=== PATIENT | male | born 1980 | race Caucasian/White ===

== ENCOUNTER 2021-10-28 21:18 | Emergency (ER) | payer MEDICAID ==
[~2021-10-28] VITALS: Ht 170.2 cm; Wt 111.0 kg
--- NOTE | 2021-10-28 22:48 | NUR ---
Pt UA collected, labeled and sent to lab. Grossly clear/yellow. Pt void ~300 urine. ERP to bedised to evaluate pt.
[2021-10-28 23:15] LABS: CLARITY,URINE CLEAR (Clear); COLOR,URINE YELLOW (Yellow); GLUCOSE, URINE NEGATIVE (Neg); KETONES,URINE NEGATIVE (Neg); LEUKOCYTE ESTERASE ,URINE NEGATIVE (Neg); NITRITES, URINE NEGATIVE (Neg); OCCULT BLOOD,URINE NEGATIVE (Neg); PH,URINE 8.5 (4.8-8.0); PROTEIN,URINE NEGATIVE (Neg); UROBILINOGEN,URINE 0.2 E.U/dL (0.2-1.0)
[2021-10-28] MEDS ORDERED: ibuprofen tablet 400 MG TABLET PO ONE (23:15)
[2021-10-28] MEDS ORDERED: silver sulfadiazine cream 400gm jar TP ONE (23:15)
[2021-10-28] MEDS ORDERED: QUEtiapine 25mg tablet PO ONE (23:15)
[2021-10-28 23:20] LABS: URINE AMPHETAMINE SCREEN NEGATIVE (Neg); URINE BARBITUATE SCREEN NEGATIVE (Neg); URINE BENZODIAZEPINES SCREEN NEGATIVE (Neg); URINE CANNABINOID SCREEN POSITIVE (Neg); URINE COCAINE SCREEN NEGATIVE (Neg); URINE METHADONE SCREEN NEGATIVE (Neg); URINE OPIATE SCREEN NEGATIVE (Neg); URINE PHENCYCLIDINE SCREEN NEGATIVE (Neg)
[2021-10-28 23:21] LABS: UA COLLECTION TYPE CLN CATCH MIDSTREAM
[2021-10-28] MEDS ORDERED: silver sulfadiazine cream 50gm TP ONE (23:35)
--- NOTE | 2021-10-28 23:39 | NUR ---
Pt states he does not "do well" with seroquel PO. Advised ERP of same.
[2021-10-28 23:40] LABS: BASOPHILS # (AUTO) 0.1 X10'3 (0-0.2); BASOPHILS % (AUTO) 0.8 % (0-1); EOSINOPHILS # (AUTO) 0.1 X10'3 (0-0.9); EOSINOPHILS % (AUTO) 1.4 % (0-6); HEMATOCRIT 39.9 % (42.0-52.0); HEMOGLOBIN 13.6 g/dl (14.0-17.9); LYMPHOCYTES % (AUTO) 22.4 % (21-51); MEAN CORPUSCULAR HEMOGLOBIN 30.1 PG (27.0-31.0); MEAN CORPUSCULAR VOLUME 88.5 FL (78-98); MEAN PLATELET VOLUME 6.9 FL (7.4-10.4); MONOCYTES # (AUTO) 1.1 X10'3 (0-0.9); MONOCYTES % (AUTO) 12.6 % (2-12); NEUTROPHILS # (AUTO) 5.5 X10'3 (1.8-7.7); NEUTROPHILS % (AUTO) 62.8 % (42-75); PLATELET COUNT 283 X10'3 (140-440); RED BLOOD COUNT 4.51 X10'6 (4.70-6.10); RED CELL DISTRIBUTION WIDTH 14.7 % (11.5-14.5); WHITE BLOOD COUNT 8.8 X10'3 (4.5-11.0)
[2021-10-28 23:51] LABS: ALANINE AMINOTRANSFERASE 65 U/L (12-78); ALBUMIN/GLOBULIN RATIO 0.9 (1.1-1.5); ALKALINE PHOSPHATASE 72 IU/L (46-116); ANION GAP 9 (8-16); ASPARTATE AMINO TRANSFERASE 50 U/L (10-37); BILIRUBIN,TOTAL 0.3 MG/DL (0.1-1.0); BLOOD UREA NITROGEN 12 MG/DL (7-18); BUN/CREATININE RATIO 16.9 (5.4-32.0); CALCIUM 8.3 MG/DL (8.5-10.1); CHLORIDE 103 MMOL/L (99-107); CREATININE 0.71 MG/DL (0.60-1.10); ETHANOL < 0.010 GM/DL (0.0-0.010); GLUCOSE 85 MG/DL (70-104); POTASSIUM 3.5 MMOL/L (3.5-5.1); SODIUM 142 MMOL/L (135-145); TOTAL CARBON DIOXIDE 30.1 MMOL/L (24-32); TOTAL PROTEIN 6.5 G/DL (6.4-8.2); eGFR > 90 ML/MIN
--- NOTE | 2021-10-29 00:12 | NUR ---
Covid swab collected, labled, walked to lab. Pt luke. well remained pink, no acute/resp distress.
--- NOTE | 2021-10-29 02:53 | NUR ---
Pt pink, sleeping, no acute/resp distress. No s/s complication or adverse reaction. Will continue to monitor for acute changes and on going needs.
--- NOTE | 2021-10-29 03:45 | NUR ---
Pt transferred to mental health holding rm 24, a/o, nad, will ctm
--- NOTE | 2021-10-29 06:00 | NUR ---
PT. CARE ASSUMED FROM OF GOING NURSE EAGLE ABDI. PT. RESTING QUIETLY WITH EYES CLOSED NO DISTRESS NOTED.
--- NOTE | 2021-10-29 06:22 | NUR ---
Handsoff report given to oncoming rn
--- NOTE | 2021-10-29 09:00 | NUR ---
PT. AAOX4 THIS SHIFT DENIES ANY CURRENT THOUGHTS OF SI/HI. PT. STATES HE CONTINUES TO HEAR VOICES. PT. AT TIMES SEEM TO HAVE PERIODS OF THOUGHT BLOCKING DURING ASSESSMENT. PT. ASKING FOR MORNING MEDICATIONS, PT. PROVIDED THIS DIRECTOR MOBILE WITH PHARMACY INFORMATION. PT. ATE BREAKFAST THIS MORNING. DENIES ANY OTHER COMPLAINTS AT THIS TIME. STAFF WILL CONTINUE TO MONITOR FOR SAFETY.
[2021-10-29] MEDS ORDERED: OMEP20CA16 PO (10:27)
[2021-10-29] MEDS ORDERED: RISP50DI IM (10:27)
--- NOTE | 2021-10-29 10:30 | NUR ---
PT. VISIBLE ON UNIT PACING IN THE HALLWAY. PT. STATES HE HAS BAD ANXIETY DUE TO THE VOICES. THIS QUANTITATIVE CONSULTANT SPOKE WITH THE ER DOCTOR . ORDER RECEIVED FOR SEROQUEL 50 MG X 1 DOSE. PT. COMPLIANT WITH MEDICATIONS.
[2021-10-29] MEDS ORDERED: QUEtiapine 25mg tablet PO STA (10:31)
--- NOTE | 2021-10-29 10:42 | NUR ---
MEIDCATION RECONCILIATION COMPLETED. MEDICATIONS VERIFIED WITH [facility] IN [facility].
[2021-10-29] MEDS ORDERED: RISPERIDONE MICROSPHERES 50 MG/2 ML IM SCH ×2 (10:45→15:09)
--- NOTE | 2021-10-29 12:58 | NUR ---
PT. VISIBLE LYING IN BED QUIETLY.
--- NOTE | 2021-10-29 15:55 | NUR ---
NON ADHERENT DSG. APPLIED TO SUPERFICIAL BURN TO BACK OF NECK.
--- NOTE | 2021-10-29 17:31 | NUR ---
RESTING QUIETLY NO DISTRESS NOTED.
[2021-10-29] MEDS ORDERED: mag hydrox/Alum hydrox/simeth 30ml oral suspension PO ONE (19:30)
--- NOTE | 2021-10-29 19:45 | NUR ---
Pt with complaints of heartburn notified , N.O Maalox admin as ordered.
--- NOTE | 2021-10-29 20:30 | NUR ---
Pt eating dinner at this time, no distress noted.
--- NOTE | 2021-10-29 23:49 | NUR ---
Pt laying quietly in bed at this time, no distress noted.
--- NOTE | 2021-10-30 01:49 | NUR ---
Pt quietly sleeping at this time, no ditress noted.
--- NOTE | 2021-10-30 03:18 | NUR ---
Pt asleep , no distress noted.
--- NOTE | 2021-10-30 05:24 | NUR ---
Pt awake pacing the unit quietly at this time.
--- NOTE | 2021-10-30 06:00 | NUR ---
ASSUMED PT.CRAE FROM OFF GOING NURSE JOSE ANGEL RN. PT. VISIBLE ON THE UNTIL PER OFF GOING UP SINCE 0500 AM PACING ON THE UNIT. PT. PROVIDED WITH A CUP OF COFFEE REQUESTED. PT. GIVEN HYGIENE SUPPLIES FOR ADL'S. STAFF WILL CONTINUE TO MONITOR.
--- NOTE | 2021-10-30 07:30 | NUR ---
DR. BARREAR ROUNDING THIS MORNING INFORMED HIM OF PHARMACY REQUEST TO D/C OR HAVE PT. FAMILY BRING IN HOME DOSE OF RISPERDAL CONSTA. PT. STATES HE IS HOMELESS AND NORMALLY RECEIVES BI-WEEKLY INJECTIONS FROM [facility]. DR. BARRERA ASKED THAT A CALL BE PLACED TO [facility] FOR MEDICATION RECOMMENDATION, DUE TO [facility] NOT HAVING RISPERDAL CONSTA INJECTIONS. CALL PLACED TO [facility] THIS METAL TESTER SPOKE WITH RAOUL;RAOUL STATES HE WILL INFORM THE PSYCHIATRIC DOCTORS OF REQUEST.
[2021-10-30] MEDS ORDERED: pantoprazole 40mg Tablet.DR PO SCH (08:00)
--- NOTE | 2021-10-30 09:12 | NUR ---
PT. AAO X4 THIS SHIFT DENIES ANY CURRENT SI/HI OR VISUAL HALLUCINATIONS. PT. STATES AUDITORY HALLUCINATIONS BETTER, DENIES ANY COMMANDS TO SELF HARM. PT. MEDICATION COMPLIANT WITH SCHEDULED MEDS AND MORNING ASSESSMENT. CONSUMED BREAKFAST. PT. SCHEDULED FOR DISCHARGE TO ASSISTED.
[2021-10-30 10:03] VITALS: BP 153/89
--- NOTE | 2021-10-30 10:09 | NUR ---
PT. ESCORTED OFF UNIT BY SECURITY FOR D/C TO [facility] [place].
== END 2021-10-30 10:00 | disposition home or self-care (01) ==
LOC: ER 21:18
DX: F20.9 Schizophrenia, unspecified (principal); Z20.822 Contact with and (suspected) exposure to COVID-19; Z72.89 Other problems related to lifestyle; Z59.00 Homelessness unspecified; Z88.8 Allergy status to other drugs, medicaments and biological substances; Z79.899 Other long term (current) drug therapy
CPT/HCPCS: 36415; 80053; 80305; 80320; 81003; 85025; 87635; 99285; C9803

== ENCOUNTER 2021-11-01 23:37 | Emergency (ER) | payer MEDICAID ==
[~2021-11-01] VITALS: Ht 170.2 cm; Wt 105.0 kg
[~2021-11-01 23:37] MED LIST: OMEP20CA16 PO; RISP50DI IM
[2021-11-02 00:27] LABS: BASOPHILS # (AUTO) 0.1 X10'3 (0-0.2); BASOPHILS % (AUTO) 1.1 % (0-1); EOSINOPHILS # (AUTO) 0.3 X10'3 (0-0.9); EOSINOPHILS % (AUTO) 3.1 % (0-6); HEMOGLOBIN 13.6 g/dl (14.0-17.9); LYMPHOCYTES # (AUTO) 1.7 X10'3 (1.1-4.8); LYMPHOCYTES % (AUTO) 20.8 % (21-51); MEAN CORPUSCULAR HEMOGLOBIN 30.7 PG (27.0-31.0); MEAN CORPUSCULAR HGB CONC 34.9 g/dL (33.0-36.5); MEAN CORPUSCULAR VOLUME 87.9 FL (78-98); MONOCYTES % (AUTO) 11.5 % (2-12); NEUTROPHILS # (AUTO) 5.3 X10'3 (1.8-7.7); NEUTROPHILS % (AUTO) 63.5 % (42-75); PLATELET COUNT 334 X10'3 (140-440); RED BLOOD COUNT 4.44 X10'6 (4.70-6.10); RED CELL DISTRIBUTION WIDTH 14.7 % (11.5-14.5); WHITE BLOOD COUNT 8.4 X10'3 (4.5-11.0)
[2021-11-02 00:40] LABS: ALANINE AMINOTRANSFERASE 62 U/L (12-78); ALBUMIN 3.4 G/DL (3.4-5.0); ALBUMIN/GLOBULIN RATIO 0.9 (1.1-1.5); ALKALINE PHOSPHATASE 81 IU/L (46-116); ANION GAP 12 (8-16); ASPARTATE AMINO TRANSFERASE 42 U/L (10-37); BILIRUBIN,TOTAL 0.3 MG/DL (0.1-1.0); BLOOD UREA NITROGEN 16 MG/DL (7-18); BUN/CREATININE RATIO 18.6 (5.4-32.0); CALCIUM 8.6 MG/DL (8.5-10.1); CHLORIDE 102 MMOL/L (99-107); CREATININE 0.86 MG/DL (0.60-1.10); GLUCOSE 119 MG/DL (70-104); POTASSIUM 3.7 MMOL/L (3.5-5.1); SODIUM 141 MMOL/L (135-145); TOTAL CARBON DIOXIDE 26.7 MMOL/L (24-32); TOTAL PROTEIN 7.2 G/DL (6.4-8.2); eGFR > 90 ML/MIN
[2021-11-02] MEDS ORDERED: pantoprazole 40MG/NS 100ML BAG 100 ML IV ONE ×2 (00:50→00:55)
[2021-11-02] MEDS ORDERED: famotidine/PF 10 mg/ml inj IV ONE (00:50)
[2021-11-02] MEDS ORDERED: pantoprazole 40MG/NS 100ML BAG 100 ML IV SCH (01:00)
[2021-11-02] MEDS ORDERED: FAMO20TA44 PO (04:56)
[2021-11-02] MEDS ORDERED: OMEP20CA15 PO (04:56)
[2021-11-02] MEDS ORDERED: SUCR1TAB34 PO (04:56)
[2021-11-02] MEDS ORDERED: ONDA4TAB12 PO (04:56)
[2021-11-02 05:05] VITALS: BP 125/86
[2021-11-02 08:39] LABS: OCCULT BLOOD STOOL NEGATIVE (Neg)
== END 2021-11-02 05:06 | disposition home or self-care (01) ==
LOC: ER 23:38
DX: K29.01 Acute gastritis with bleeding (principal); K92.0 Hematemesis; R10.9 Unspecified abdominal pain; F20.9 Schizophrenia, unspecified; F17.200 Nicotine dependence, unspecified, uncomplicated; Z72.89 Other problems related to lifestyle; Z56.0 Unemployment, unspecified; Z59.00 Homelessness unspecified; Z88.8 Allergy status to other drugs, medicaments and biological substances; Z79.899 Other long term (current) drug therapy
CPT/HCPCS: 36415; 80053; 82272; 85025; 96365; 96375; 96376; 99284; C9113; J3490